=== PATIENT | female | born 1995 | race Two or more races ===

== ENCOUNTER 2023-08-12 16:35 | Emergency (ER) | payer BC, OTHER ==
[2023-08-12 16:57] VITALS: TEMP 97.9
[2023-08-12 17:52] LABS: Basophils % (A) 0 %; Eosinophils # (A) 0.2 k/uL (0-0.7); Eosinophils % (A) 2 %; HCT 44.4 % (34.0-46.0); HGB 15.1 gm/dL (11.4-16.0); Lymphocytes # (A) 2.1 k/uL (1.0-4.8); Lymphocytes % (A) 23 %; MCH 28.6 pg (25.0-35.0); MCV 84.1 fL (80.0-100.0); Mean Platelet Volume 8.6; Monocytes # (A) 0.3 k/uL (0-1.0); Monocytes % (A) 3 %; Neutrophils # (A) 6.5 k/uL (1.3-7.7); Neutrophils % (A) 71 %; Platelet Count 275 k/uL (150-450); RBC 5.28 m/uL (3.80-5.40); RDW 12.8 % (11.5-15.5); WBC 9.2 k/uL (3.8-10.6)
[2023-08-12 18:01] LABS: ALT 31 U/L (4-34); AST 33 U/L (14-36); African American GFR (CKD) >90 (>60 ml/min/1.73 sqM); Albumin 4.7 g/dL (3.5-5.0); Alkaline Phosphatase 86 U/L (38-126); Anion Gap 12 mmol/L; Blood Urea Nitrogen 8 mg/dL (7-17); Calcium 9.7 mg/dL (8.4-10.2); Carbon Dioxide 23 mmol/L (22-30); Chloride 106 mmol/L (98-107); Glucose 84 mg/dL (74-99); Magnesium 1.9 mg/dL (1.6-2.3); Non-African American GFR(CKD) >90 (>60 ml/min/1.73 sqM); Sodium 141 mmol/L (137-145); Total Bilirubin 0.7 mg/dL (0.2-1.3); Total Protein 8.1 g/dL (6.3-8.2)
[2023-08-12 18:02] LABS: Potassium 4.3 mmol/L (3.5-5.1)
--- NOTE | 2023-08-12 18:24 | XR ---
EXAMINATION: XR chest 2V: 08/12/2023 5:45 PM CLINICAL INDICATION: Chest Pain TECHNIQUE: Departmental protocol COMPARISON: 02/09/2016 FINDINGS: The lungs are clear. The pleural spaces are negative. The cardiac silhouette is not enlarged. The remainder of the mediastinal silhouette is unremarkable. The skeletal structures and soft tissues are negative for acute findings. IMPRESSION: No acute radiographic process.
[2023-08-12 18:31] LABS: INR 0.9 (<1.2); Partial Thromboplastin Time 25.5 sec (22.0-30.0); Prothrombin Time 10.2 sec (10.0-12.5)
[2023-08-12] MEDS ORDERED: LORazepam 0.5 MG TAB PO STA (19:18)
[2023-08-12] MEDS ORDERED: ASPIRIN 81 MG PO STA (19:18)
[2023-08-12] MEDS: MAG HYDROX/AL HYDROX/SIMETH 30 ML, HYOSCYAMINE ELIXIR 10 ML PO STA ×4 (19:35→19:36)
[2023-08-12 21:20] VITALS: BP 138/91; PULSE 85; RESP 18
--- NOTE | 2023-08-12 21:24 | ED ---
General Adult HPI - General Chief complaint: Chest Pain Stated complaint: chest pain tightness flushed Time Seen by Provider: 08/12/23 18:36 Source: patient, RN notes reviewed, old records reviewed Mode of arrival: ambulatory Limitations: no limitations - History of Present Illness Initial comments: Patient is a 27-year-old female with past medical history remarkable for anxiety and prior panic attacks presents emergency Department with atypical chest pressure sensation. States that she has felt this before when she has panic attacks but does not she is having an anxiety episode. Currently has no pain when I speak with her. Workup was started in triage. Describes the symptoms as chest tightness sensation as well as palpitations and "I feel like I can feel my pulse everywhere." She also states that her face will turn red. No known palliative or provocative factors. She does not feel anxious. No terry obvious chest pain. No dyspnea. No diaphoresis. No nausea or vomiting or abdominal pain. No other acute complaints at this time. Presents for further evaluation at this time. - Related Data Home Medications Medication Instructions Recorded Confirmed No Known Home Medications 02/09/16 02/09/16 Allergies Allergy/AdvReac Type Severity Reaction Status Date / Time No Known Allergies Allergy Verified 08/12/23 16:48 Review of Systems ROS Statement: Those systems with pertinent positive or pertinent negative responses have been documented in the HPI. Review of Systems: CONST: Denies fever EYES: Denies blurry vision ENT: Denies nasal congestion C/V: Denies Chest pain RESP: Denies shortness of breath GI: Denies abdominal pain : Denies dysuria SKIN: Denies rash. MSK: Denies joint pain. NEURO: Denies headache ROS Other: All systems not noted in ROS Statement are negative. Past Medical History Past Medical History: No Reported History History of Any Multi-Drug Resistant Organisms: MRSA Date of last positivie culture/infection: 04/18/2014 MDRO Source:: Back wound Past Surgical History: No Surgical Hx Reported Past Psychological History: No Psychological Hx Reported Smoking Status: Never smoker Past Alcohol Use History: None Reported Past Drug Use History: None Reported General Exam - General Exam Comments Initial Comments: General: Appears in no acute distress. HEAD: Normal with no signs of head trauma. EYES: PERRLA, EOMI, conjunctiva normal, no discharge. ENT: Hearing grossly intact, normal oropharynx. RESPIRATORY: Clear breath sounds bilaterally. No wheezes, rales, or rhonchi. C/V: Regular rate and rhythm. S1 and S2 auscultated, no edema, peripheral pulses 2+ and intact throughout ABD: Abd is soft, nontender, nondistended EXT: Normal range of motion, no obvious deformity SKIN: No rashes or lesions observed on exposed skin. NEURO: Alert and oriented 4. Limitations: no limitations Course Vital Signs 08/12/23 08/12/23 16:46 21:12 Temperature 97.9 F Pulse Rate 99 85 Respiratory 16 18 Rate Blood Pressure 160/96 138/91 O2 Sat by Pulse 98 99 Oximetry Medical Decision Making - Medical Decision Making Was pt. sent in by a medical professional or institution (, PA, ASSISTANT REAL ESTATE MANAGER, urgent care, hospital, or fci...) When possible be specific @ -No Did you speak to anyone other than the patient for history (EMS, parent, family, police, friend...)? What history was obtained from this source @ -No Did you review nursing and triage notes (agree or disagree)? Why? @ -I reviewed and agree with nursing and triage notes Were old charts reviewed (outside hosp., previous admission, EMS record, old EKG, old radiological studies, urgent care reports/EKG's, fci records)? Report findings @ -Charts reviewed. Differential Diagnosis (chest pain, altered mental status, abdominal pain women, abdominal pain men, vaginal bleeding, weakness, fever, dyspnea, syncope, headache, dizziness, GI bleed, back pain, seizure, CVA, palpatations, mental health, musculoskeletal)? @ -Differential Chest Pain: Stable Angina, Unstable Angina, STEMI, NSTEMI Aortic Dissection, Pneumothorax, Musculoskeletal, Esophageal Spasm GERD, Cholecystitis, Pancreatitis, Zoster, this is not meant to be an all-inclusive list. Differential Palpitations Ventricular arrhythmias, atrial arrhythmias, myocardial infarction, anemia, thyrotoxicosis, electrolyte imbalance, hypokalemia, pulmonary embolism, pulmonary disease, drugs, alcohol, anxiety, stress.... This is not meant to be an all-inclusive list. EKG interpreted by me (3pts min.). @ -As above X-rays interpreted by me (1pt min.). @ -Chest x-ray Reveals no obvious acute cardio pulmonary process. CT interpreted by me (1pt min.). @ -None done U/S interpreted by me (1pt. min.). @ -None done What testing was considered but not performed or refused? (CT, X-rays, U/S, labs)? Why? @ -None What meds were considered but not given or refused? Why? @ -None Did you discuss the management of the patient with other professionals (professionals i.e. , PA, ASSISTANT REAL ESTATE MANAGER, lab, RT, psych nurse, nephrology social worker, asian studies program chair, teacher, third officer, registered nurse hh case manager)? Give summary @ -No Was smoking cessation discussed for >3mins.? @ -No Was critical care preformed (if so, how long)? @ -No Were there social determinants of health that impacted care today? How? (Homelessness, low income, unemployed, alcoholism, drug addiction, transportation, low edu. Level, literacy, decrease access to med. care, retirement, rehab)? @ -No Was there de-escalation of care discussed even if they declined (Discuss DNR or withdrawal of care, Hospice)? DNR status @ -No What co-morbidities impacted this encounter? (DM, HTN, Smoking, COPD, CAD, Cancer, CVA, ARF, Chemo, Hep., AIDS, mental health diagnosis, sleep apnea, morbid obesity)? @ -None Was patient admitted / discharged? Hospital course, mention meds given and route, prescriptions, significant lab abnormalities, going to OR and other pertinent info. @ -Based on the patient's presentation and physical exam, chest discomfort that she experiences does seem to be more of a anxiety or panic related symptoms considering she has palpitations with tach, nonspecific chest tightness, as well as flushing. Patient currently has no symptoms. She has experienced these identical symptoms a few months back and this seems to somewhat chronic for the patient however she presents today because she states she does not feel anxious with them. We will obtain cardiopulmonary workup. She was in agreement this plan. She'll be sent directly treated with empiric aspirin as well as Maalox and Ativan. Vital signs within acceptable limits. Patient currently asymptomatic. EKG showed no signs of acute ischemia. Chest x-ray unremarkable. Labs are remarkable for 2 undetectable troponins, normal d-dimer, normal TSH, and remainder of labs are within acceptable limits. On reevaluation, vital signs remained stable. She has no acute complaints at this time. We did discuss with her results. I believe it is safer to follow-up with her PCP on an outpatient basis endorses does seem somewhat chronic. She was in agreement this plan. Strict return precautions discussed. Heart scores low. I instructed the patient to follow up with their PCP in the next 1-3 days. I explained that the patient should return to the emergency department if they experience any worsening symptoms. Strict return precautions were discussed with the patient. The patient expressed understanding of these instructions. I answered all questions that the patient had. The patient was discharged home in good condition with their prescriptions and follow up information. Undiagnosed new problem with uncertain prognosis? @ -No Drug Therapy requiring intensive monitoring for toxicity (Heparin, Nitro, Insulin, Cardizem)? @ -No Were any procedures done? @ -No Diagnosis/symptom? @ -Atypical chest pain Acute, or Chronic, or Acute on Chronic? @ -Acute on chronic Uncomplicated (without systemic symptoms) or Complicated (systemic symptoms)? @ -Uncomplicated Side effects of treatment? @ -No Exacerbation, Progression, or Severe Exacerbation? @ -No Poses a threat to life or bodily function? How? (Chest pain, [place], MA, pneumonia, PE, COPD, DKA, ARF, appy, cholecystitis, CVA, Diverticulitis, Homicidal, Suicidal, threat to staff... and all critical care pts) @ -Unlikely - Lab Data Result diagrams: 08/12/23 16:58 08/12/23 16:58 Lab Results 08/12/23 08/12/23 08/12/23 Range/Units 16:58 16:58 16:58 WBC 9.2 (3.8-10.6) k/uL RBC 5.28 (3.80-5.40) m/uL Hgb 15.1 (11.4-16.0) gm/dL Hct 44.4 (34.0-46.0) % MCV 84.1 (80.0-100.0) fL MCH 28.6 (25.0-35.0) pg MCHC 34.0 (31.0-37.0) g/dL RDW 12.8 (11.5-15.5) % Plt Count 275 (150-450) k/uL MPV 8.6 Neutrophils % 71 % Lymphocytes % 23 % Monocytes % 3 % Eosinophils % 2 % Basophils % 0 % Neutrophils # 6.5 (1.3-7.7) k/uL Lymphocytes # 2.1 (1.0-4.8) k/uL Monocytes # 0.3 (0-1.0) k/uL Eosinophils # 0.2 (0-0.7) k/uL Basophils # 0.0 (0-0.2) k/uL PT 10.2 (10.0-12.5) sec INR 0.9 (<1.2) APTT 25.5 (22.0-30.0) sec D-Dimer (<0.60) mg/L FEU Sodium 141 (137-145) mmol/L Potassium 4.3 (3.5-5.1) mmol/L Chloride 106 (98-107) mmol/L Carbon Dioxide 23 (22-30) mmol/L Anion Gap 12 mmol/L BUN 8 (7-17) mg/dL Creatinine 0.59 (0.52-1.04) mg/dL Est GFR (CKD-EPI)AfAm >90 (>60 ml/min/1.73 sqM) Est GFR (CKD-EPI)NonAf >90 (>60 ml/min/1.73 sqM) Glucose 84 (74-99) mg/dL Calcium 9.7 (8.4-10.2) mg/dL Magnesium 1.9 (1.6-2.3) mg/dL Total Bilirubin 0.7 (0.2-1.3) mg/dL AST 33 (14-36) U/L ALT 31 (4-34) U/L Alkaline Phosphatase 86 (38-126) U/L Troponin I (0.000-0.034) ng/mL Total Protein 8.1 (6.3-8.2) g/dL Albumin 4.7 (3.5-5.0) g/dL TSH (0.465-4.680) mIU/L 08/12/23 08/12/23 08/12/23 Range/Units 16:58 19:26 19:26 WBC (3.8-10.6) k/uL RBC (3.80-5.40) m/uL Hgb (11.4-16.0) gm/dL Hct (34.0-46.0) % MCV (80.0-100.0) fL MCH (25.0-35.0) pg MCHC (31.0-37.0) g/dL RDW (11.5-15.5) % Plt Count (150-450) k/uL MPV Neutrophils % % Lymphocytes % % Monocytes % % Eosinophils % % Basophils % % Neutrophils # (1.3-7.7) k/uL Lymphocytes # (1.0-4.8) k/uL Monocytes # (0-1.0) k/uL Eosinophils # (0-0.7) k/uL Basophils # (0-0.2) k/uL PT (10.0-12.5) sec INR (<1.2) APTT (22.0-30.0) sec D-Dimer 0.18 (<0.60) mg/L FEU Sodium (137-145) mmol/L Potassium (3.5-5.1) mmol/L Chloride (98-107) mmol/L Carbon Dioxide (22-30) mmol/L Anion Gap mmol/L BUN (7-17) mg/dL Creatinine (0.52-1.04) mg/dL Est GFR (CKD-EPI)AfAm (>60 ml/min/1.73 sqM) Est GFR (CKD-EPI)NonAf (>60 ml/min/1.73 sqM) Glucose (74-99) mg/dL Calcium (8.4-10.2) mg/dL Magnesium (1.6-2.3) mg/dL Total Bilirubin (0.2-1.3) mg/dL AST (14-36) U/L ALT (4-34) U/L Alkaline Phosphatase (38-126) U/L Troponin I <0.012 (0.000-0.034) ng/mL Total Protein (6.3-8.2) g/dL Albumin (3.5-5.0) g/dL TSH 1.660 (0.465-4.680) mIU/L 08/12/23 Range/Units 19:41 WBC (3.8-10.6) k/uL RBC (3.80-5.40) m/uL Hgb (11.4-16.0) gm/dL Hct (34.0-46.0) % MCV (80.0-100.0) fL MCH (25.0-35.0) pg MCHC (31.0-37.0) g/dL RDW (11.5-15.5) % Plt Count (150-450) k/uL MPV Neutrophils % % Lymphocytes % % Monocytes % % Eosinophils % % Basophils % % Neutrophils # (1.3-7.7) k/uL Lymphocytes # (1.0-4.8) k/uL Monocytes # (0-1.0) k/uL Eosinophils # (0-0.7) k/uL Basophils # (0-0.2) k/uL PT (10.0-12.5) sec INR (<1.2) APTT (22.0-30.0) sec D-Dimer (<0.60) mg/L FEU Sodium (137-145) mmol/L Potassium (3.5-5.1) mmol/L Chloride (98-107) mmol/L Carbon Dioxide (22-30) mmol/L Anion Gap mmol/L BUN (7-17) mg/dL Creatinine (0.52-1.04) mg/dL Est GFR (CKD-EPI)AfAm (>60 ml/min/1.73 sqM) Est GFR (CKD-EPI)NonAf (>60 ml/min/1.73 sqM) Glucose (74-99) mg/dL Calcium (8.4-10.2) mg/dL Magnesium (1.6-2.3) mg/dL Total Bilirubin (0.2-1.3) mg/dL AST (14-36) U/L ALT (4-34) U/L Alkaline Phosphatase (38-126) U/L Troponin I <0.012 (0.000-0.034) ng/mL Total Protein (6.3-8.2) g/dL Albumin (3.5-5.0) g/dL TSH (0.465-4.680) mIU/L - EKG Data -: EKG Interpreted by Me EKG Comments: 12-lead Electrocardiogram Interpretation Note EKG was reviewed and interpreted by myself. 12-lead ECG performed at 1706 is interpreted by me as revealing normal sinus rhythm at a rate of 79 beats per minute. [place] is normal. [place] interval is 132 ms, QRS duration is 97 ms, QTc is 417 ms.. There were no ST or T wave abnormalities to suggest myocardial ischemia or injury. R wave progression across the precordium was satisfactory. By my interpretation this EKG is non-diagnostic for acute ischemia. Disposition Clinical Impression: Atypical chest pain Disposition: HOME SELF-CARE Condition: Good Instructions (If sedation given, give patient instructions): Chest Pain (ED) Is patient prescribed a controlled substance at d/c from ED?: No Referrals: Bakari Chaudhari DO [Primary Care Provider] - 1-2 days Time of Disposition: 21:05
== END 2023-08-12 21:31 | disposition home or self-care (01) ==
LOC: EC 16:35
DX: R07.89 Other chest pain (principal)
CPT/HCPCS: 36415; 71046; 80053; 83735; 84443; 84484; 85025; 85379; 85610; 85730; 93005; 99285

== ENCOUNTER 2023-08-25 18:25 | Observation (INO) | payer OTHER ==
--- NOTE | 2023-08-25 18:51 | ED ---
General Adult HPI <Skinny Umana - Last Filed: 08/25/23 18:51> - General Source: patient, RN notes reviewed <Gemini Riley - Last Filed: 08/26/23 14:14> - General Stated complaint: Chest Pain - History of Present Illness Initial comments: 27-year-old female presents to the ED with a chief complaint of chest pain. Patient notes the past 5 days has had chest pain. Also notes some neck pain and arm pain. Denies any trauma. Patient notes that she was seen here previously for this. At that time had an unremarkable workup. (Skinny Umana) 27 year old female presents to the emergency department with chief complaint of chest pain. She states that this has been going on for the past 2 weeks but has been worsening for 5 days. She denies any aggravating or alleviating factors. She states that the pain comes on multiple times throughout the day and last for around one hour. She admits to feeling a pounding in her chest. She also admits that the pain radiates up her neck. She states that she is also had some flushing. She was evaluated in the emergency department 2 weeks ago for similar symptoms. Workup was negative at that time. She states that her symptoms are worse now. She denies alcohol, smoking, drug use. Denies any significant past medical history although she does not follow closely with her PCP. (Gemini Riley) - Related Data Home Medications Medication Instructions Recorded Confirmed No Known Home Medications 02/09/16 08/26/23 Allergies Allergy/AdvReac Type Severity Reaction Status Date / Time No Known Allergies Allergy Verified 08/26/23 07:41 Review of Systems ROS Other: All systems not noted in ROS Statement are negative. <Skinny Umana - Last Filed: 08/25/23 18:51> ROS Other: All systems not noted in ROS Statement are negative. <Gemini Riley - Last Filed: 08/26/23 14:14> ROS Statement: Those systems with pertinent positive or pertinent negative responses have been documented in the HPI. Past Medical History Past Medical History: No Reported History History of Any Multi-Drug Resistant Organisms: MRSA Date of last positivie culture/infection: 04/18/2014 MDRO Source:: Back wound Past Surgical History: No Surgical Hx Reported Past Psychological History: No Psychological Hx Reported Smoking Status: Never smoker Past Alcohol Use History: None Reported Past Drug Use History: None Reported <LyndsayRadhaSkinny - Last Filed: 08/25/23 18:51> General Exam Limitations: no limitations General appearance: alert Neck exam: Present: normal inspection Extremities exam: Present: normal inspection Back exam: Present: normal inspection Neurological exam: Present: alert <LyndsayRadhaSkinny - Last Filed: 08/25/23 18:51> Limitations: no limitations General appearance: alert, in no apparent distress Head exam: Present: atraumatic, normocephalic, normal inspection Eye exam: Present: normal appearance, PERRL, EOMI. Absent: scleral icterus, conjunctival injection, periorbital swelling ENT exam: Present: normal exam, mucous membranes moist Neck exam: Present: normal inspection, full ROM. Absent: tenderness, meningismus, lymphadenopathy Respiratory exam: Present: normal lung sounds bilaterally. Absent: respiratory distress, wheezes, rales, rhonchi, stridor Cardiovascular Exam: Present: normal rhythm, tachycardia GI/Abdominal exam: Present: soft, normal bowel sounds. Absent: distended, tenderness, guarding, rebound, rigid Extremities exam: Present: normal inspection, full ROM, normal capillary refill. Absent: tenderness, pedal edema, joint swelling, calf tenderness Neurological exam: Present: alert, oriented X3 Psychiatric exam: Present: normal affect, normal mood Skin exam: Present: warm, dry, intact, normal color. 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 Signed Skinny Umana PA-C (Skinny Umana) Was pt. sent in by a medical professional or institution (, PA, ASBESTOS MICROSCOPIST, urgent care, hospital, or penitentiary...) When possible be specific @ -No Did you speak to anyone other than the patient for history (EMS, parent, family, police, friend...)? What history was obtained from this source @ -No Did you review nursing and triage notes (agree or disagree)? Why? @ -I reviewed and agree with nursing and triage notes Were old charts reviewed (outside hosp., previous admission, EMS record, old EKG, old radiological studies, urgent care reports/EKG's, penitentiary records)? Report findings @ -No old charts were reviewed Differential Diagnosis (chest pain, altered mental status, abdominal pain women, abdominal pain men, vaginal bleeding, weakness, fever, dyspnea, syncope, headache, dizziness, GI bleed, back pain, seizure, CVA, palpatations, mental health, musculoskeletal)? @ -Differential Chest Pain: Stable Angina, Unstable Angina, STEMI, NSTEMI Aortic Dissection, Pneumothorax, Musculoskeletal, Esophageal Spasm GERD, Cholecystitis, Pancreatitis, Zoster, this is not meant to be an all-inclusive list. EKG interpreted by me (3pts min.). @ -EKG at 2137 shows sinus tachycardia rate 112, AL 135, QRS 97, QTQTc [id number] X-rays interpreted by me (1pt min.). @ -X-ray shows no evidence of acute process. CT interpreted by me (1pt min.). @ -None done U/S interpreted by me (1pt. min.). @ -None done What testing was considered but not performed or refused? (CT, X-rays, U/S, labs)? Why? @ -None What meds were considered but not given or refused? Why? @ -None Did you discuss the management of the patient with other professionals (professionals i.e. , TIFFANIE, ASBESTOS MICROSCOPIST, lab, RT, psych nurse, social insurance specialist, mechanic insulator, teacher, quality officer, caser)? Give summary @ -No Was smoking cessation discussed for >3mins.? @ -No Was critical care preformed (if so, how long)? @ -No Were there social determinants of health that impacted care today? How? (Homelessness, low income, unemployed, alcoholism, drug addiction, transportation, low edu. Level, literacy, decrease access to med. care, group home, rehab)? @ -No Was there de-escalation of care discussed even if they declined (Discuss DNR or withdrawal of care, Hospice)? DNR status @ -No What co-morbidities impacted this encounter? (DM, HTN, Smoking, COPD, CAD, Cancer, CVA, ARF, Chemo, Hep., AIDS, mental health diagnosis, sleep apnea, morbid obesity)? @ -None Was patient admitted / discharged? Hospital course, mention meds given and route, prescriptions, significant lab abnormalities, going to OR and other pertinent info. @ -27-year-old female presents emergency department chief complaint of chest pain, tachycardia. This is been going on for around 5 days. She denies aggravating or alleviating factors. Chest x-ray shows no evidence of acute process.CBC shows WBC 12.6, hemoglobin 15.9; d-dimer less than 0.17, negative troponin, TSH 1.95; UA shows 3+ ketones, trace leukocyte esterase. Patient continues to have tachycardia in the ED. She will be admitted with cardiology consult. Patient stable at time of admission. Case discussed with Dr. Randle. Undiagnosed new problem with uncertain prognosis? @ -No Drug Therapy requiring intensive monitoring for toxicity (Heparin, Nitro, Insulin, Cardizem)? @ -No Were any procedures done? @ -No Diagnosis/symptom? @ -Chest pain Acute, or Chronic, or Acute on Chronic? @ -acute Uncomplicated (without systemic symptoms) or Complicated (systemic symptoms)? @ -uncomplicated Side effects of treatment? @ -No Exacerbation, Progression, or Severe Exacerbation? @ -No Poses a threat to life or bodily function? How? (Chest pain, [place], HI, pneumonia, PE, COPD, DKA, ARF, appy, cholecystitis, CVA, Diverticulitis, Homicidal, Suicidal, threat to staff... and all critical care pts) @ -No (Gemini Riley) - Lab Data Lab Results 08/25/23 08/25/23 08/25/23 Range/Units 21:51 21:51 21:51 WBC 12.6 H (3.8-10.6) k/uL RBC 5.53 H (3.80-5.40) m/uL Hgb 15.9 (11.4-16.0) gm/dL Hct 46.8 H (34.0-46.0) % MCV 84.7 (80.0-100.0) fL MCH 28.7 (25.0-35.0) pg MCHC 33.9 (31.0-37.0) g/dL RDW 12.5 (11.5-15.5) % Plt Count 280 (150-450) k/uL MPV 8.3 Neutrophils % 89 % Lymphocytes % 6 % Monocytes % 3 % Eosinophils % 1 % Basophils % 1 % Neutrophils # 11.2 H (1.3-7.7) k/uL Lymphocytes # 0.8 L (1.0-4.8) k/uL Monocytes # 0.4 (0-1.0) k/uL Eosinophils # 0.1 (0-0.7) k/uL Basophils # 0.1 (0-0.2) k/uL PT (10.0-12.5) sec INR (<1.2) APTT (22.0-30.0) sec D-Dimer (<0.60) mg/L FEU Sodium 142 (137-145) mmol/L Potassium 3.9 (3.5-5.1) mmol/L Chloride 105 (98-107) mmol/L Carbon Dioxide 22 (22-30) mmol/L Anion Gap 15 mmol/L BUN 6 L (7-17) mg/dL Creatinine 0.65 (0.52-1.04) mg/dL Est GFR (CKD-EPI)AfAm >90 (>60 ml/min/1.73 sqM) Est GFR (CKD-EPI)NonAf >90 (>60 ml/min/1.73 sqM) Glucose 85 (74-99) mg/dL Calcium 9.6 (8.4-10.2) mg/dL Total Bilirubin 0.5 (0.2-1.3) mg/dL AST 22 (14-36) U/L ALT 27 (4-34) U/L Alkaline Phosphatase 107 (38-126) U/L Troponin I <0.012 (0.000-0.034) ng/mL Total Protein 8.0 (6.3-8.2) g/dL Albumin 4.7 (3.5-5.0) g/dL TSH (0.465-4.680) mIU/L Urine Color Urine Appearance (Clear) Urine pH (5.0-8.0) Ur Specific [place] (1.001-1.035) Urine Protein (Negative) Urine Glucose (UA) (Negative) Urine Ketones (Negative) Urine Blood (Negative) Urine Nitrite (Negative) Urine Bilirubin (Negative) Urine Urobilinogen (<2.0) mg/dL Ur Leukocyte Esterase (Negative) Urine RBC (0-5) /hpf Urine WBC (0-5) /hpf Ur Squamous Epith Cells (0-4) /hpf Hyaline Casts (0-2) /lpf Urine Mucus (None) /hpf 08/25/23 08/25/23 08/25/23 Range/Units 21:51 22:45 22:59 WBC (3.8-10.6) k/uL RBC (3.80-5.40) m/uL Hgb (11.4-16.0) gm/dL Hct (34.0-46.0) % MCV (80.0-100.0) fL MCH (25.0-35.0) pg MCHC (31.0-37.0) g/dL RDW (11.5-15.5) % Plt Count (150-450) k/uL MPV Neutrophils % % Lymphocytes % % Monocytes % % Eosinophils % % Basophils % % Neutrophils # (1.3-7.7) k/uL Lymphocytes # (1.0-4.8) k/uL Monocytes # (0-1.0) k/uL Eosinophils # (0-0.7) k/uL Basophils # (0-0.2) k/uL PT 10.5 (10.0-12.5) sec INR 1.0 (<1.2) APTT 25.1 (22.0-30.0) sec D-Dimer <0.17 (<0.60) mg/L FEU Sodium (137-145) mmol/L Potassium (3.5-5.1) mmol/L Chloride (98-107) mmol/L Carbon Dioxide (22-30) mmol/L Anion Gap mmol/L BUN (7-17) mg/dL Creatinine (0.52-1.04) mg/dL Est GFR (CKD-EPI)AfAm (>60 ml/min/1.73 sqM) Est GFR (CKD-EPI)NonAf (>60 ml/min/1.73 sqM) Glucose (74-99) mg/dL Calcium (8.4-10.2) mg/dL Total Bilirubin (0.2-1.3) mg/dL AST (14-36) U/L ALT (4-34) U/L Alkaline Phosphatase (38-126) U/L Troponin I (0.000-0.034) ng/mL Total Protein (6.3-8.2) g/dL Albumin (3.5-5.0) g/dL TSH 1.950 (0.465-4.680) mIU/L Urine Color Yellow Urine Appearance Clear (Clear) Urine pH 5.5 (5.0-8.0) Ur Specific [place] 1.019 (1.001-1.035) Urine Protein Negative (Negative) Urine Glucose (UA) Negative (Negative) Urine Ketones 3+ H (Negative) Urine Blood Negative (Negative) Urine Nitrite Negative (Negative) Urine Bilirubin Negative (Negative) Urine Urobilinogen <2.0 (<2.0) mg/dL Ur Leukocyte Esterase Trace H (Negative) Urine RBC 1 (0-5) /hpf Urine WBC 4 (0-5) /hpf Ur Squamous Epith Cells 4 (0-4) /hpf Hyaline Casts 3 H (0-2) /lpf Urine Mucus Many H (None) /hpf Disposition <Skinny Umana - Last Filed: 08/25/23 18:51> Is patient prescribed a controlled substance at d/c from ED?: No <Gemini Riley - Last Filed: 08/26/23 14:14> Clinical Impression: Chest pain, Tachycardia Disposition: ADMITTED IP TO THIS HOSP Condition: Stable
[2023-08-25 22:38] LABS: Basophils # (A) 0.1 k/uL (0-0.2); Basophils % (A) 1 %; Eosinophils # (A) 0.1 k/uL (0-0.7); Eosinophils % (A) 1 %; HCT 46.8 % (34.0-46.0); HGB 15.9 gm/dL (11.4-16.0); Lymphocytes # (A) 0.8 k/uL (1.0-4.8); Lymphocytes % (A) 6 %; MCH 28.7 pg (25.0-35.0); MCHC 33.9 g/dL (31.0-37.0); MCV 84.7 fL (80.0-100.0); Mean Platelet Volume 8.3; Monocytes # (A) 0.4 k/uL (0-1.0); Monocytes % (A) 3 %; Neutrophils # (A) 11.2 k/uL (1.3-7.7); Neutrophils % (A) 89 %; Platelet Count 280 k/uL (150-450); RBC 5.53 m/uL (3.80-5.40); RDW 12.5 % (11.5-15.5); WBC 12.6 k/uL (3.8-10.6)
[2023-08-25 22:47] LABS: Anion Gap 15 mmol/L; Blood Urea Nitrogen 6 mg/dL (7-17); Carbon Dioxide 22 mmol/L (22-30); Chloride 105 mmol/L (98-107); Glucose 85 mg/dL (74-99); Potassium 3.9 mmol/L (3.5-5.1); Sodium 142 mmol/L (137-145)
[2023-08-25 22:48] LABS: ALT 27 U/L (4-34); AST 22 U/L (14-36); African American GFR (CKD) >90 (>60 ml/min/1.73 sqM); Albumin 4.7 g/dL (3.5-5.0); Alkaline Phosphatase 107 U/L (38-126); Calcium 9.6 mg/dL (8.4-10.2); Non-African American GFR(CKD) >90 (>60 ml/min/1.73 sqM); Total Bilirubin 0.5 mg/dL (0.2-1.3)
[2023-08-25 23:18] LABS: Appearance,Urine Clear (Clear); Bilirubin,Urine Negative (Negative); Blood,Urine Negative (Negative); Color,Urine Yellow; Glucose,Urine (UA) Negative (Negative); Hyaline Casts,Urine 3 /lpf (0-2); Ketones,Urine 3+ (Negative); Leukocyte Esterase,Urine Trace (Negative); Mucus,Urine Many /hpf; Nitrite,Urine Negative (Negative); PH, Urine 5.5 (5.0-8.0); Protein,Urine Negative (Negative); RBC,Urine 1 /hpf (0-5); Specific Gravity,Urine 1.019 (1.001-1.035); Squamous Epithelial Cell,Urine 4 /hpf (0-4); Urobilinogen,Urine <2.0 mg/dL (<2.0); WBC,Urine 4 /hpf (0-5)
[2023-08-25 23:57] LABS: Partial Thromboplastin Time 25.1 sec (22.0-30.0); Prothrombin Time 10.5 sec (10.0-12.5)
[2023-08-26] MEDS ORDERED: KETOROLAC 15 MG/ML 1 ML VIAL IVP STA (01:17)
[2023-08-26] MEDS ORDERED: KETOROLAC 15 MG/ML 1 ML VIAL IVP PRN (01:17)
[2023-08-26] MEDS ORDERED: MORPHINE SULFATE 4 MG/ML SYRINGE IV PRN (01:17)
[2023-08-26] MEDS ORDERED: NALOXONE 0.4 MG/ML 1 ML VIAL IV PRN (01:17)
[2023-08-26] MEDS ORDERED: IBUPROFEN 400 MG TAB PO PRN (01:17)
[2023-08-26] MEDS ORDERED: ONDANSETRON 4 MG/2 ML VIAL IVP PRN (01:17)
[2023-08-26] MEDS ORDERED: MELATONIN 3 MG TABLET PO PRN (01:17)
--- NOTE | 2023-08-26 01:56 | XR ---
EXAM: XR Chest, 2 Views CLINICAL HISTORY: pain TECHNIQUE: Frontal and lateral views of the chest. COMPARISON: August 12, 2023 FINDINGS: Lungs: Unremarkable. No infiltration, atelectasis or mass density. Pleural space: Unremarkable. No pneumothorax. No pleural fluid. Heart: Unremarkable. No cardiomegaly. Mediastinum: Unremarkable. Bones/joints: Unremarkable. No acute abnormalities. IMPRESSION: Negative chest x-rays.
[2023-08-26] MEDS: SODIUM CHLORIDE 0.9% 1,000 ML IV SCH ×4 (02:23→23:49)
[2023-08-26] MEDS: ACETAMINOPHEN TAB 325 MG TAB PO PRN ×3 (09:36→23:50)
--- NOTE | 2023-08-26 10:12 | P.CRDCN ---
History of Present Illness History of present illness: HISTORY OF PRESENT ILLNESS: This is a 27-year-old female with a past medical history significant for prediabetes (per patient), anxiety, depression, ADD, and morbid obesity. 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 We have been asked to see the patient in consultation for chest pain. Patient examined at the bedside. Patient presented to the hospital with a chief complaint of chest pain. She states the pain was in the middle of her chest and has been intermittent for the past week. She also reports having palpitations. She reports feeling flushed at home and reports a headache with some neck pain as well. She states that she came to the emergency room 2 weeks ago for similar symptoms and her workup was negative at that time and she was discharged from the emergency room. Patient denies any alcohol use, drug use, or nicotine use. Orthostatic blood pressures obtained this morning were negative. However patient did become tachycardic with a heart rate in the 140s upon standing. * EKG reveals sinus tachycardia with no signs of acute ischemia * Chest xray negative for acute process * Laboratory data: Significant for WBC 12.6. Troponin negative 2. TSH 1.950. * Current home cardiac medications include none REVIEW OF SYSTEMS: At the time of my exam: CONSTITUTIONAL: Denies fever or chills. HEENT: Denies blurred vision, vision changes, or eye pain. Denies hemoptysis CARDIOVASCULAR: Denies chest pain. Denies orthopnea. Denies PND. Denies palpitations RESPIRATORY: Denies shortness of breath. GASTROINTESTINAL: Denies abdominal pain. Denies nausea or vomiting. HEMATOLOGIC: Denies bleeding disorders. GENITOURINARY: Denies any blood in urine. SKIN: Denies pruitis. Denies rash. PHYSICAL EXAM: VITAL SIGNS: Reviewed. GENERAL: Well-developed in no acute distress. HEENT: Head is normocephalic. Pupils are equal, round. Sclerae anicteric. Mucous membranes of the mouth are moist. Neck supple. No JVD or thyromegaly LUNGS: Respirations even and unlabored. Lungs essentially clear to auscultation bilaterally. HEART: Regular rate and rhythm. S1 and S2 heard. ABDOMEN: Soft. Nondistended. Nontender. EXTREMITIES: Normal range of motion. No clubbing or cyanosis. Peripheral pulses intact. No lower extremity edema NEUROLOGIC: Awake and alert. Oriented x 3. ASSESSMENT: Chest pain Palpitations Suspected POTS Prediabetes Anxiety Depression ADD Morbid obesity: BMI 45.7 PLAN: An acute coronary event has been ruled out Obtain lipid panel and hemoglobin A1c Obtain 2-D echo to assess cardiac structure and function Begin metoprolol tartrate 50 mg the morning and 25 mg at night Check for Covid and flu Further recommendations pending patient's course Nurse practitioner note has been reviewed by physician. Signing provider agrees with the documented findings, assessment, and plan of care. Past Medical History Past Medical History: Diabetes Mellitus, Hyperlipidemia, Neurologic Disorder, Skin Disorder Additional Past Medical History / Comment(s): autism dx age 17, adhd, depression, anxiety- no current medications, [id number] meds, high ch olesterol History of Any Multi-Drug Resistant Organisms: MRSA Date of last positivie culture/infection: 04/18/2014 MDRO Source:: Back wound Past Surgical History: No Surgical Hx Reported Additional Past Surgical History / Comment(s): tubes in ears as toddler, infection to back age 17-lanced and on abx, wisdom teeth extraction Past Anesthesia/Blood Transfusion Reactions: Postoperative Nausea & Vomiting (PONV) Additional Past Anesthesia/Blood Transfusion Reaction / Comment(s): wisdom teeth extraction P-O-Nausea Past Psychological History: ADD/ADHD, Anxiety, Depression Additional Psychological History / Comment(s): no medications Smoking Status: Never smoker Past Alcohol Use History: None Reported Past Drug Use History: None Reported - Past Family History Father History Unknown: Yes Family Medical History: Congestive Heart Failure (CHF), Myocardial Infarction (DE) Additional Family Medical History / Comment(s): DE with cardiac stenting, CHF Medications and Allergies Home Medications Medication Instructions Recorded Confirmed Type No Known Home Medications 02/09/16 08/26/23 History Allergies Allergy/AdvReac Type Severity Reaction Status Date / Time No Known Allergies Allergy Verified 08/26/23 07:41 Physical Exam Vitals: Vital Signs Temp Pulse Pulse Resp BP BP Pulse Ox 08/26/23 04:00 114 H 16 08/26/23 02:58 99.4 F 112 H 16 130/63 96 08/26/23 02:00 122 H 18 135/83 99 08/26/23 00:00 116 H 18 165/77 100 08/25/23 22:51 110 H 18 169/78 100 08/25/23 18:48 99.0 F 118 H 16 160/98 98 Intake and Output 08/25/23 08/26/23 08/26/23 22:59 06:59 14:59 Other: Voiding Method Toilet Weight 117.027 kg 117.027 kg Results 08/25/23 21:51 08/25/23 21:51 Cardiac Enzymes 08/25/23 08/25/23 08/26/23 Range/Units 21:51 21:51 01:40 AST 22 (14-36) U/L Troponin I <0.012 <0.012 (0.000-0.034) ng/mL Coagulation 08/25/23 Range/Units 22:59 PT 10.5 (10.0-12.5) sec APTT 25.1 (22.0-30.0) sec CBC 08/25/23 Range/Units 21:51 WBC 12.6 H (3.8-10.6) k/uL RBC 5.53 H (3.80-5.40) m/uL Hgb 15.9 (11.4-16.0) gm/dL Hct 46.8 H (34.0-46.0) % Plt Count 280 (150-450) k/uL Comprehensive Metabolic Panel 08/25/23 Range/Units 21:51 Sodium 142 (137-145) mmol/L Potassium 3.9 (3.5-5.1) mmol/L Chloride 105 (98-107) mmol/L Carbon Dioxide 22 (22-30) mmol/L BUN 6 L (7-17) mg/dL Creatinine 0.65 (0.52-1.04) mg/dL Glucose 85 (74-99) mg/dL Calcium 9.6 (8.4-10.2) mg/dL AST 22 (14-36) U/L ALT 27 (4-34) U/L Alkaline Phosphatase 107 (38-126) U/L Total Protein 8.0 (6.3-8.2) g/dL Albumin 4.7 (3.5-5.0) g/dL Current Medications Generic Name Dose Route Start Last Admin Trade Name Freq PRN Reason Stop Dose Admin Acetaminophen 650 mg 08/26/23 01:17 Acetaminophen Tab 325 Mg Tab PO Q6HR PRN Mild Pain or Fever > 100.5 Sodium Chloride 1,000 mls @ 130 mls/hr 08/26/23 01:30 08/26/23 02:23 Saline 0.9% IV 130 mls/hr .[id number] CEDRIC Administration Ibuprofen 400 mg 08/26/23 01:17 Ibuprofen 400 Mg Tab PO Q6HR PRN Mild Pain or Fever > 100.5 Ketorolac Tromethamine 15 mg 08/26/23 01:17 Ketorolac 15 Mg/Ml 1 Ml Vial IVP 08/29/23 01:19 EST Q6HR PRN Moderate Pain (Scale 4 to 6) Melatonin 3 mg 08/26/23 01:17 Melatonin 3 Mg Tablet PO HS PRN Insomnia Morphine Sulfate 4 mg 08/26/23 01:17 Morphine Sulfate 4 Mg/Ml Syringe IV Q4HR PRN Severe Pain (Scale 7 to 10) Naloxone HCl 0.2 mg 08/26/23 01:17 Naloxone 0.4 Mg/Ml 1 Ml Vial IV Q2M PRN Opioid Reversal Ondansetron HCl 4 mg 08/26/23 01:17 Ondansetron 4 Mg/2 Ml Vial IVP Q8HR PRN Nausea And Vomiting Intake and Output 08/25/23 08/26/23 08/26/23 22:59 06:59 14:59 Other: Voiding Method Toilet Weight 117.027 kg 117.027 kg 08/25/23 21:51 08/25/23 21:51
[2023-08-26] MEDS: METOPROLOL TARTRATE 50 MG TAB PO SCH (11:02)
[2023-08-26 11:16] LABS: Chol/HDL Ratio 4.08 Ratio; LDL Cholesterol,Calculated 83.6 mg/dL (0.0-131.0); VLDL Calculation 12.96 mg/dL (5.00-40.00)
--- NOTE | 2023-08-26 11:53 | P.HPIM ---
History of Present Illness Patient is a pleasant 27-year-old female came in with complaints of chest pain which started a few days ago intermittent along with headache. Patient was evaluated by cardiology patient doesn't have any significant EKG changes trop onins were negative and echocardiogram was ordered cardiology please a noncardiac chest pain although etiology of chest pain is not clear at this time. Patient had a normal TSH patient was tachycardic and the believed to have the postural orthostatic tachycardia syndrome. Later on patient was diagnosed with the COVID-19 and the patient has high-grade fever which can also cause tachycardia. Patient is receiving IV fluids at this time. Patient had a normal d-dimer. Patient was comparing of postnasal drip and headache REVIEW OF SYSTEMS: CONSTITUTIONAL: No fever, no malaise, no fatigue. HEENT: No recent visual problems or hearing problems. Denied any sore throat. CARDIOVASCULAR: No orthopnea, PND, no palpitations, no syncope. PULMONARY: No shortness of breath, no cough, no hemoptysis. GASTROINTESTINAL: No diarrhea, no nausea, no vomiting, no abdominal pain. NEUROLOGICAL:no weakness, no numbness. HEMATOLOGICAL: Denies any bleeding or petechiae. GENITOURINARY: Denies any burning micturition, frequency, or urgency. MUSCULOSKELETAL/RHEUMATOLOGICAL: Denies any joint pain, swelling, or any muscle pain. ENDOCRINE: Denies any polyuria or polydipsia. The rest of the 14-point review of systems is negative. PHYSICAL EXAMINATION: GENERAL: The patient is alert and oriented x3, not in any acute distress. Obese HEENT: Pupils are round and equally reacting to light. EOMI. No scleral icterus. No conjunctival pallor. Normocephalic, atraumatic. No pharyngeal erythema. No thyromegaly. Tachycardic CARDIOVASCULAR: S1 and S2 present. No murmurs, rubs, or gallops. PULMONARY: Chest is clear to auscultation, no wheezing or crackles. ABDOMEN: Soft, nontender, nondistended, normoactive bowel sounds. No palpable organomegaly. MUSCULOSKELETAL: No joint swelling or deformity. EXTREMITIES: No cyanosis, clubbing, or pedal edema. NEUROLOGICAL: Gross neurological examination did not reveal any focal deficits. SKIN: No rashes. Assessment and plan -Chest pain: Rule out acute chronic syndromes troponins are negative echo will be obtained. Chest pain may be musculoskeletal from the COVID-19 infection. -COVID-19 infection patient is do not hypoxic will not require any steroids -Tachycardia: May be secondary to Coumadin dehydration patient can urine IV fluids although postural orthostatic tachycardia syndrome is being considered and obesity may be contributing to that -Pre diabetes DVT prophylaxis: Lovenox Past Medical History Past Medical History: Diabetes Mellitus, Hyperlipidemia, Neurologic Disorder, Skin Disorder Additional Past Medical History / Comment(s): autism dx age 17, adhd, depressi on, anxiety- no current medications, [id number] meds, high cholesterol History of Any Multi-Drug Resistant Organisms: MRSA Date of last positivie culture/infection: 04/18/2014 MDRO Source:: Back wound Past Surgical History: No Surgical Hx Reported Additional Past Surgical History / Comment(s): tubes in ears as toddler, infection to back age 17-lanced and on abx, wisdom teeth extraction Past Anesthesia/Blood Transfusion Reactions: Postoperative Nausea & Vomiting (PONV) Additional Past Anesthesia/Blood Transfusion Reaction / Comment(s): wisdom teeth extraction P-O-Nausea Past Psychological History: ADD/ADHD, Anxiety, Depression Additional Psychological History / Comment(s): no medications Smoking Status: Never smoker Past Alcohol Use History: None Reported Past Drug Use History: None Reported - Past Family History Father History Unknown: Yes Family Medical History: Congestive Heart Failure (CHF), Myocardial Infarction (IN) Additional Family Medical History / Comment(s): [place] with cardiac stenting, CHF Medications and Allergies Home Medications Medication Instructions Recorded Confirmed Type No Known Home Medications 02/09/16 08/26/23 History Allergies Allergy/AdvReac Type Severity Reaction Status Date / Time No Known Allergies Allergy Verified 08/26/23 07:41 Physical Exam Vitals: Vital Signs Temp Pulse Pulse Pulse Pulse Resp BP 08/26/23 11:27 144 H 116 H 16 08/26/23 08:00 99.9 F H 116 H 14 08/26/23 04:00 114 H 16 08/26/23 02:58 99.4 F 112 H 16 08/26/23 02:00 122 H 18 135/83 08/26/23 00:00 116 H 18 165/77 08/25/23 22:51 110 H 18 169/78 08/25/23 18:48 99.0 F 118 H 16 160/98 BP BP BP Pulse Ox 08/26/23 11:27 134/92 140/83 98 08/26/23 08:00 119/73 98 08/26/23 04:00 08/26/23 02:58 130/63 96 08/26/23 02:00 99 08/26/23 00:00 100 08/25/23 22:51 100 08/25/23 18:48 98 Intake and Output 08/25/23 08/26/23 08/26/23 22:59 06:59 14:59 Other: Voiding Method Toilet Toilet Weight 117.027 kg 117.027 kg Results CBC & Chem 7: 08/25/23 21:51 08/25/23 21:51 Labs: Abnormal Lab Results - Last 24 Hours (Table) 08/25/23 08/25/23 08/25/23 Range/Units 21:51 21:51 22:45 WBC 12.6 H (3.8-10.6) k/uL RBC 5.53 H (3.80-5.40) m/uL Hct 46.8 H (34.0-46.0) % Neutrophils # 11.2 H (1.3-7.7) k/uL Lymphocytes # 0.8 L (1.0-4.8) k/uL BUN 6 L (7-17) mg/dL HDL Cholesterol (40.00-60.00) mg/dL Urine Ketones 3+ H (Negative) Ur Leukocyte Esterase Trace H (Negative) Hyaline Casts 3 H (0-2) /lpf Urine Mucus Many H (None) /hpf Coronavirus (PCR) (Not Detectd) 08/26/23 08/26/23 Range/Units 08:17 09:52 WBC (3.8-10.6) k/uL RBC (3.80-5.40) m/uL Hct (34.0-46.0) % Neutrophils # (1.3-7.7) k/uL Lymphocytes # (1.0-4.8) k/uL BUN (7-17) mg/dL HDL Cholesterol 31.40 L (40.00-60.00) mg/dL Urine Ketones (Negative) Ur Leukocyte Esterase (Negative) Hyaline Casts (0-2) /lpf Urine Mucus (None) /hpf Coronavirus (PCR) Detected A (Not Detectd) Thrombosis Risk Factor Assmnt - Choose All That Apply Any of the Below Risk Factors Present?: Yes Each Factor Represents 1 point: Obesity (BMI >25) Other Risk Factors: No Other congenital or acquired thrombophilia - If yes, enter type in comment: No Thrombosis Risk Factor Assessment Total Risk Factor Score: 1 Thrombosis Risk Factor Assessment Level: Low Risk
[2023-08-26] MEDS: ENOXAPARIN 40 MG/0.4 ML SYRINGE SQ SCH (12:22)
[2023-08-26] MEDS: FAMOTIDINE 20 MG TAB PO SCH ×2 (12:22→19:55)
[2023-08-26] MEDS ORDERED: LORATADINE 10 MG TAB PO PRN (20:09)
[2023-08-26] MEDS ORDERED: METOPROLOL TARTRATE 25 MG TAB PO SCH (21:00)
--- NOTE | 2023-08-27 07:01 | CA ---
Transthoracic Echo Report Name: Jennifer Price Age: 27 Gender: F : 1995 Exam Date: 08/26/2023 14:34 Exam Location: [facility] Ht (in): 63 Wt (lb): 258 Ordering Physician: Bronwyn Holbrook Attending/Referring Phys: [id number], Sheron Burrer Hand Lolis Moran [facility] Procedure CPT: Indications: CP Cardiac Hx: Technical Quality: Technically difficult study Contrast 1: Definity Total Dose (mL): 5 Contrast 2: Total Dose (mL): MEASUREMENTS (Male / Female) Normal Values 2D ECHO LV Diastolic Diameter PLAX 4.9 cm 4.2 - 5.9 / 3.9 - 5.3 cm LV Systolic Diameter PLAX 3.1 cm IVS Diastolic Thickness 1.1 cm 0.6 - 1.0 / 0.6 - 0.9 cm LVPW Diastolic Thickness 1.0 cm 0.6 - 1.0 / 0.6 - 0.9 cm LV Relative Wall Thickness 0.4 Ascending Aorta Diameter 2.7 cm DOPPLER Mitral E Point Velocity 68.6 cm/s Mitral A Point Velocity 61.7 cm/s Mitral E to A Ratio 1.1 MV Deceleration Time 172.4 ms LV E' Lateral Velocity 17.0 cm/s Mitral E to LV E' Lateral Ratio 4.0 LV E' Septal Velocity 10.5 cm/s Mitral E to LV E' Septal Ratio 6.5 FINDINGS Left Ventricle Mild concentric left ventricular hypertrophy. Left ventricular cavity size at the upper limits of normal. Normal left ventricular diastolic filling pattern. Normal left ventricular systolic function with no obvious regional wall motion abnormalities. Left ventricular ejection fraction is estimated at 55-60%. Right Ventricle Right Atrium Left Atrium Mitral Valve Aortic Valve Tricuspid Valve Pulmonic Valve Pericardium No pericardial effusion. Aorta Normal size aortic root and proximal ascending aorta. CONCLUSIONS Limited study, patient is COVID+ Normal left ventricular size and systolic function Definity ECHO contrast used for improved visualization of the endocardial borders (inadequate visualization of two or more contiguous segments). Previewed by: Dr. Panda Agrawal MD (Electronically Signed) Final Date: 27 August 2023 07:01
[2023-08-27] MEDS ORDERED: METOPROLOL TARTRATE 50 MG TAB PO SCH (09:00)
[2023-08-27] MEDS: ENOXAPARIN 40 MG/0.4 ML SYRINGE SQ SCH (09:20)
[2023-08-27] MEDS: FAMOTIDINE 20 MG TAB PO SCH (09:20)
[2023-08-27] MEDS: METOPROLOL TARTRATE 50 MG TAB PO SCH (09:20)
[2023-08-27 09:26] LABS: Basophils % (A) 1 %; Eosinophils % (A) 0 %; HGB 13.6 gm/dL (11.4-16.0); Lymphocytes # (A) 0.7 k/uL (1.0-4.8); Lymphocytes % (A) 14 %; MCHC 33.9 g/dL (31.0-37.0); MCV 85.5 fL (80.0-100.0); Mean Platelet Volume 8.3; Monocytes # (A) 0.5 k/uL (0-1.0); Monocytes % (A) 9 %; Neutrophils # (A) 3.8 k/uL (1.3-7.7); Neutrophils % (A) 75 %; Platelet Count 176 k/uL (150-450); RBC 4.68 m/uL (3.80-5.40); RDW 12.7 % (11.5-15.5); WBC 5.1 k/uL (3.8-10.6)
[2023-08-27 09:36] LABS: ALT 24 U/L (4-34); AST 24 U/L (14-36); African American GFR (CKD) >90 (>60 ml/min/1.73 sqM); Albumin 3.5 g/dL (3.5-5.0); Alkaline Phosphatase 67 U/L (38-126); Anion Gap 12 mmol/L; Blood Urea Nitrogen 5 mg/dL (7-17); Calcium 8.4 mg/dL (8.4-10.2); Carbon Dioxide 22 mmol/L (22-30); Chloride 105 mmol/L (98-107); Glucose 110 mg/dL (74-99); Magnesium 1.8 mg/dL (1.6-2.3); Non-African American GFR(CKD) >90 (>60 ml/min/1.73 sqM); Potassium 3.7 mmol/L (3.5-5.1); Sodium 139 mmol/L (137-145); Total Bilirubin 0.4 mg/dL (0.2-1.3); Total Protein 6.3 g/dL (6.3-8.2)
[2023-08-27 11:03] VITALS: BP 134/84; PULSE 99; RESP 14; TEMP 99.7
--- NOTE | 2023-08-27 14:23 | PN ---
PROGRESS NOTE SUBJECTIVE: This is a 27-year-old lady who was seen by me yesterday with tachycardia. Her heart rate is better. She has been hydrated. She has COVID infection, but no COVID pneumonia. She is on beta blockers. She can be discharged whenever it is okay by her admitting doctor. OBJECTIVE: VITALS: Stable. HEART: S1, S2 heard normally. LUNGS: Clear. ABDOMEN: Unchanged. EXTREMITIES: Lower extremities exam unchanged. MMODL / IJN: [id number] /
--- NOTE | 2023-08-29 06:53 | P.DS ---
Providers Date of admission: 08/26/23 01:19 Expected date of discharge: 08/27/23 Attending physician: Vitaliy Edward Consults: 08/26/23 01:17 Consult Physician Routine Consulting Provider: Carlos Talamantes Consult Reason/Comments: chest pain, tachycardia Do you want consulting provider notified?: Yes, Notify in am Primary care physician: Bakari Chaudhari Hospital Course: Final diagnosis -Chest pain: Ruled out acute chronic syndromes troponins are negative -Chest pain likely musculoskeletal from the COVID-19 infection. -COVID-19 infection with no hypoxia -Tachycardia: May be secondary to dehydration -Pre diabetes -DVT prophylaxis -GI prophylaxis -Morbid obesity with a BMI of 45.7 -Full code Discharge disposition Patient is being discharged in a stable condition with guarded prognosis to home. Patient will follow-up with Dr. Chaudhari in the outpatient setting upon discharge. Patient is to continue with vitamin supplements along with zinc and metoprolol close outpatient follow-up with cardiology as scheduled. Total time taken is greater than 35 minutes. Hospital course This is a 27-year-old female who was recently admitted with chest pain, ruled out ACS and evaluated by cardiology. Patient having tachycardia may be secondary to acute dehydration as well as fevers and also found to have COVID-19 infection. Patient reports her whole family at home has Covid as well. He is not hypoxic and has not been requiring any oxygen. Patient has been cleared by consultations for close outpatient follow-up. Patient will continue metoprolol and follow up with cardiology in one week. Patient instructed and encouraged to monitor for fevers and treat with Tylenol and/or Motrin. Patient follow-up with primary care provider this week. Please refer to cardiology notes for further HPI. Currently no reports of chest pain, shortness of breath, or palpitations. Patient is afebrile. No reports of nausea or vomiting and patient is tolerating diet. Patient will be discharged home today. Physical exam: Gen: This is a 27-year-old male who is awake, alert and oriented 3, well- developed, well-nourished, morbidly obese HEENT: Head is atraumatic, normocephalic. Pupils equal, round. Sclerae is anicteric. NECK: Supple. No JVD. No lymphadenopathy. No thyromegaly. LUNGS: Clear to auscultation. No wheezes or rhonchi. No intercostal retractions. HEART: Regular rate and rhythm. No murmur. ABDOMEN: Soft. Bowel sounds are present. No masses. No tenderness. EXTREMITIES: No pedal edema. No calf tenderness. NEUROLOGICAL: Patient is awake, alert and oriented x3. Cranial nerves 2 through 12 are grossly intact. Please refer to medication reconciliation sheet for a list of medications. The impression and plan of care has been dictated by Sunshine Bravo, Nurse Practitioner as directed. Dr. Bernie MD I have performed a history and examination and MDM of this patient, discussed the same with the dictator, and agree with the dictator's assessment and plan as written ,documented as a scribe. Based on total visit time, I have performed more than 50% of the visit. Patient Condition at Discharge: Stable Plan - Discharge Summary Discharge Rx Participant: Yes New Discharge Prescriptions: New Loratadine [Claritin] 10 mg PO DAILY PRN #30 tab PRN Reason: Congestion Famotidine [Pepcid] 20 mg PO BID #30 tab Metoprolol Tartrate [Lopressor] 25 mg PO HS #30 tab Metoprolol Tartrate [Lopressor] 50 mg PO DAILY #30 tab Acetaminophen Tab [Tylenol Tab] 500 mg PO Q6H #30 tablet Discharge Medication List Acetaminophen Tab [Tylenol Tab] 500 mg PO Q6H #30 tablet 08/27/23 [Rx] Famotidine [Pepcid] 20 mg PO BID #30 tab 08/27/23 [Rx] Loratadine [Claritin] 10 mg PO DAILY PRN #30 tab 08/27/23 [Rx] Metoprolol Tartrate [Lopressor] 25 mg PO HS #30 tab 08/27/23 [Rx] Metoprolol Tartrate [Lopressor] 50 mg PO DAILY #30 tab 08/27/23 [Rx] Follow up Appointment(s)/Referral(s): Carlos Talamantes MD [STAFF PHYSICIAN] - 1 Week (the office will call you with your appointment) Bakari Chaudhari DO [Primary Care Provider] - 09/13/23 3:30 pm Patient Instructions/Handouts: Metoprolol (By mouth), COVID-19 (Coronavirus Disease 2019) (DC) Discharge Disposition: HOME SELF-CARE
== END 2023-08-27 13:13 | disposition home or self-care (01) ==
LOC: EC 18:25 → 6NMEDSUR 08-26 01:19 → 3SCARD 08-26 03:03
PROVIDERS: ADMIT Hospitalist; ATTEND Hospitalist
DX: R07.89 Other chest pain (principal); U07.1 COVID-19; R00.0 Tachycardia, unspecified; E86.0 Dehydration; F84.0 Autistic disorder; E78.00 Pure hypercholesterolemia, unspecified; R73.03 Prediabetes; R00.2 Palpitations; M54.2 Cervicalgia; E66.01 Morbid (severe) obesity due to excess calories; Z68.42 Body mass index [BMI] 45.0-49.9, adult; F90.9 Attention-deficit hyperactivity disorder, unspecified type; F41.9 Anxiety disorder, unspecified; F32.A Depression, unspecified; Z87.2 Personal history of diseases of the skin and subcutaneous tissue; Z86.14 Personal history of Methicillin resistant Staphylococcus aureus infection; Z98.818 Other dental procedure status; Z98.890 Other specified postprocedural states; Z82.49 Family history of ischemic heart disease and other diseases of the circulatory system
CPT/HCPCS: 96376; 96361 ×3; 96372 ×2; 96375; 96374; 99285; 36415; 93005; 85379; 80061; 80053 ×2; 84443; 83735; 84484 ×2; 85025 ×2; 85610; 85730; 81001; 83036; 87635; 71046; G0378 ×3; C8924; J2270; J1650 ×2; Q9957; J1885; 93308

== ENCOUNTER → 2025-02-09 | Outpatient (CLI) | payer OTHER ==
--- NOTE | 2025-02-09 18:15 | XR ---
EXAMINATION TYPE: XR cervical spine comp DATE OF EXAM: 02/09/2025 1:55 PM COMPARISON: None CLINICAL INDICATION: Female, 29 years old with history of M54.2 Cervicalgia; PHH, pain TECHNIQUE: 5 views FINDINGS: Minimal scattered facet and uncovertebral joint spurring. No significant bony or foraminal narrowing seen. Some straightening of the normal cervical lordosis. Preserved alignment. No predental space wid ening or prevertebral soft tissue swelling. Disc interspaces are maintained. Normal odontoid views. IMPRESSION: Some mild early facet and uncovertebral joint spurring. Slight straightening of the normal cervical l ordosis could be positional or due to muscle spasm. Otherwise, no specific abnormality seen. [facility], , 02/09/2025 6:13 PM
== END | disposition home or self-care (01) ==
LOC: RADXRMAIN 13:40
PROVIDERS: ATTEND Family Medicine
DX: M46.02 Spinal enthesopathy, cervical region (principal)
CPT/HCPCS: 72050